=== PATIENT | female | born 1995 | race Caucasian/White ===

== ENCOUNTER 2022-04-24 12:30 | Outpatient (CLI) | payer OTHER ==
[~2022-04-24] VITALS: Ht 157.5 cm; Wt 75.0 kg
[2022-04-24 12:30] VITALS: BP 123/63
[~2022-04-24 12:30] MED LIST: ALBUTEROL SULFATE 2.5 MG/0.5 ML INH NEB SOLN INH PRN; EPINEPHrine INJ 1 MG/ML 1ML AMP IM PRN; IRON SUCROSE 300 MG in NS 250 ML OVER 90 MIN. IV ONE; NS 1,000 ML IV SCH; diphenhydrAMINE 50MG/ML VIAL (J1200) IV PRN; methylPREDNISolone 125MG 2ML VIAL IV PRN
[2022-04-24] MEDS ORDERED: [UNRECOGNIZED DRUG - OTHER] PO (12:52)
[2022-04-24] MEDS ORDERED: MULTTAB20 PO (12:52)
[2022-04-24] MEDS ORDERED: IMUR50TA10 PO (12:57)
[2022-04-24] MEDS ORDERED: PREG25CA PO (13:01)
[2022-04-24] MEDS ORDERED: ESCITALOPRAM PO (13:01)
[2022-04-24 13:30] VITALS: BP 113/55
[2022-04-24 15:25] VITALS: BP 115/59
== END 2022-04-24 15:25 | disposition home or self-care (01) ==
LOC: M INFU 12:30
PROVIDERS: ATTEND Registered Nurse
DX: O99.013 Anemia complicating pregnancy, third trimester (principal); Z3A.00 Weeks of gestation of pregnancy not specified; Z88.2 Allergy status to sulfonamides
CPT/HCPCS: 96365; 96366; J1756

== ENCOUNTER 2022-05-01 11:35 | Outpatient (CLI) | payer OTHER ==
[~2022-05-01] VITALS: Ht 157.5 cm; Wt 77.2 kg
[2022-05-01 11:35] VITALS: BP 118/66
[~2022-05-01 11:35] MED LIST changes: +ESCITALOPRAM PO; +IMUR50TA10 PO; -IRON SUCROSE 300 MG in NS 250 ML OVER 90 MIN. IV ONE; +MULTTAB20 PO; -NS 1,000 ML IV SCH; +PREG25CA PO; +[UNRECOGNIZED DRUG - OTHER] PO
[2022-05-01] MEDS ORDERED: IRON SUCROSE 300 MG in NS 250 ML OVER 90 MIN. IV ONE (12:00)
[2022-05-01] MEDS ORDERED: NS 1,000 ML IV SCH (12:00)
[2022-05-01 12:15] VITALS: BP 114/56
[2022-05-01 13:40] VITALS: BP 118/56
== END 2022-05-01 13:40 | disposition home or self-care (01) ==
LOC: M INFU 11:35
PROVIDERS: ATTEND Registered Nurse
DX: O99.013 Anemia complicating pregnancy, third trimester (principal); Z3A.00 Weeks of gestation of pregnancy not specified
CPT/HCPCS: 96365; 96366; J1756

== ENCOUNTER 2022-05-08 11:25 | Outpatient (CLI) | payer OTHER ==
[~2022-05-08] VITALS: Ht 157.5 cm; Wt 75.0 kg
[2022-05-08 11:25] VITALS: BP 123/56
[2022-05-08] MEDS ORDERED: IRON SUCROSE 300 MG in NS 250 ML OVER 90 MIN. IV ONE (11:30)
[2022-05-08] MEDS ORDERED: NS 1,000 ML IV SCH (11:30)
[2022-05-08 13:25] VITALS: BP 105/52
== END 2022-05-08 13:25 | disposition home or self-care (01) ==
LOC: M INFU 11:25 → EDUNIT# 11:30 → M INFU 13:25
PROVIDERS: ATTEND Registered Nurse
DX: O99.013 Anemia complicating pregnancy, third trimester (principal); Z3A.00 Weeks of gestation of pregnancy not specified; Z88.2 Allergy status to sulfonamides
CPT/HCPCS: 96365; 96366; J1756

== ENCOUNTER 2022-05-17 19:16 | Outpatient (CLI) | payer OTHER ==
[~2022-05-17] VITALS: Ht 157.5 cm; Wt 79.5 kg
[~2022-05-17 19:16] MED LIST changes: -ALBUTEROL SULFATE 2.5 MG/0.5 ML INH NEB SOLN INH PRN; -EPINEPHrine INJ 1 MG/ML 1ML AMP IM PRN; -diphenhydrAMINE 50MG/ML VIAL (J1200) IV PRN; -methylPREDNISolone 125MG 2ML VIAL IV PRN
[2022-05-17 19:37] VITALS: BP 124/69
== END 2022-05-17 20:16 | disposition home or self-care (01) ==
LOC: M LDO 19:16
PROVIDERS: ATTEND Obstetrics & Gynecology
DX: O36.8130 Decreased fetal movements, third trimester, not applicable or unspecified (principal); Z3A.33 33 weeks gestation of pregnancy; O99.713 Diseases of the skin and subcutaneous tissue complicating pregnancy, third trimester; L29.9 Pruritus, unspecified; Z88.2 Allergy status to sulfonamides
CPT/HCPCS: 59025; G0463

== ENCOUNTER 2022-06-11 11:35 | Outpatient (CLI) | payer OTHER ==
[~2022-06-11] VITALS: Ht 165.1 cm; Wt 80.0 kg
[~2022-06-11 11:35] MED LIST changes: +ALBUTEROL SULFATE 2.5 MG/0.5 ML INH NEB SOLN INH PRN; +EPINEPHrine INJ 1 MG/ML 1ML AMP IM PRN; +IRON SUCROSE 200 MG in NS 100 ML OVER 1 HR IV ONE; +NS 1,000 ML IV SCH; +diphenhydrAMINE 50MG/ML VIAL (J1200) IV PRN; +methylPREDNISolone 125MG 2ML VIAL IV PRN
[2022-06-11 12:00] VITALS: BP 134/61
[2022-06-11 13:27] VITALS: BP 114/58
== END 2022-06-11 13:30 | disposition home or self-care (01) ==
LOC: M INFU 11:35
PROVIDERS: ATTEND Internal Medicine Hematology
DX: D50.9 Iron deficiency anemia, unspecified (principal); Z88.2 Allergy status to sulfonamides
CPT/HCPCS: 96365; J1756

== ENCOUNTER 2022-06-18 11:22 | Outpatient (CLI) | payer OTHER ==
[~2022-06-18] VITALS: Ht 152.4 cm; Wt 80.0 kg
[~2022-06-18 11:22] MED LIST changes: -ALBUTEROL SULFATE 2.5 MG/0.5 ML INH NEB SOLN INH PRN; -EPINEPHrine INJ 1 MG/ML 1ML AMP IM PRN; -IRON SUCROSE 200 MG in NS 100 ML OVER 1 HR IV ONE; -NS 1,000 ML IV SCH; -diphenhydrAMINE 50MG/ML VIAL (J1200) IV PRN; -methylPREDNISolone 125MG 2ML VIAL IV PRN
[2022-06-18] MEDS ORDERED: EPINEPHrine INJ 1 MG/ML 1ML AMP IM PRN (11:30)
[2022-06-18] MEDS ORDERED: NS 1,000 ML IV SCH (11:30)
[2022-06-18] MEDS ORDERED: methylPREDNISolone 125MG 2ML VIAL IV PRN (11:30)
[2022-06-18] MEDS ORDERED: diphenhydrAMINE 50MG/ML VIAL (J1200) IV PRN (11:30)
[2022-06-18] MEDS ORDERED: ALBUTEROL SULFATE 2.5 MG/0.5 ML INH NEB SOLN INH PRN (11:30)
[2022-06-18] MEDS ORDERED: IRON SUCROSE 200 MG in NS 100 ML OVER 1 HR IV ONE (11:30)
[2022-06-18 11:36] VITALS: BP 119/57
[2022-06-18 13:00] VITALS: BP 115/53
== END 2022-06-18 13:00 | disposition home or self-care (01) ==
LOC: M INFU 11:22
PROVIDERS: ATTEND Internal Medicine Hematology
DX: D50.9 Iron deficiency anemia, unspecified (principal); Z88.2 Allergy status to sulfonamides
CPT/HCPCS: 96365; J1756

== ENCOUNTER 2022-06-22 12:34 | Outpatient (CLI) | payer OTHER ==
[~2022-06-22] VITALS: Ht 154.9 cm; Wt 81.1 kg
[2022-06-22 13:02] VITALS: BP 104/63
[2022-06-22] MEDS ORDERED: CLAR5TAB11 PO (13:10)
[2022-06-22] MEDS ORDERED: HOME MED LIST COMPLETE! XX SCH (13:10)
== END 2022-06-22 13:55 | disposition home or self-care (01) ==
LOC: M LDO 12:34
PROVIDERS: ATTEND Obstetrics & Gynecology
DX: O36.8130 Decreased fetal movements, third trimester, not applicable or unspecified (principal); Z3A.38 38 weeks gestation of pregnancy; Z88.2 Allergy status to sulfonamides
CPT/HCPCS: 59025; 76815; G0463

== ENCOUNTER 2022-06-26 22:06 | Outpatient (CLI) | payer OTHER ==
[~2022-06-26] VITALS: Ht 157.5 cm; Wt 82.3 kg
[~2022-06-26 22:06] MED LIST changes: +CLAR5TAB11 PO
[2022-06-26 22:21] VITALS: BP 114/69
[2022-06-26] MEDS ORDERED: HOME MED LIST COMPLETE! XX SCH (22:25)
== END 2022-06-26 22:55 | disposition home or self-care (01) ==
LOC: M LDO 22:06
PROVIDERS: ATTEND Obstetrics & Gynecology
DX: O47.1 False labor at or after 37 completed weeks of gestation (principal); Z3A.38 38 weeks gestation of pregnancy; Z88.2 Allergy status to sulfonamides
CPT/HCPCS: 59025; 76815; G0463

== ENCOUNTER 2022-06-30 17:27 | Inpatient (IN) | payer OTHER ==
[~2022-06-30] VITALS: Ht 157.5 cm; Wt 82.6 kg
[2022-06-30] VITALS (16 sets, daily range): BP systolic 94–125; BP diastolic 50–70
[2022-06-30] MEDS ORDERED: PANT20TA6 PO (18:04)
[2022-06-30] MEDS ORDERED: LEXA1TAB2 PO (18:04)
[2022-06-30] MEDS ORDERED: LACTATED RINGER'S 1000 ML IV STA (20:41)
[2022-06-30] MEDS ORDERED: OXYTOCIN DRIP 30 UNITS in IV 1 EA IV PRN ×6 (20:45)
[2022-06-30] MEDS ORDERED: LR 1,000 ML IV SCH (20:45)
[2022-06-30] MEDS ORDERED: CARBOPROST TROMETHAMINE 250 MCG/ML AMP IM PRN (20:45)
[2022-06-30] MEDS ORDERED: METHYLERGONOVINE MALEATE 0.2 MG/ML VIAL (J2210) IM PRN (20:45)
[2022-06-30] MEDS ORDERED: OXYTOCIN INJ 10 UNITS/ML VIAL (J2590) IV PRN (20:45)
[2022-06-30] MEDS ORDERED: LIDOCAINE 1% MDV 20ML VIAL INFIL PRN (20:45)
[2022-06-30] MEDS ORDERED: OXYTOCIN INJ 10 UNITS/ML VIAL (J2590) IM PRN (20:45)
[2022-06-30] MEDS ORDERED: TRANEXAMIC ACID INJection 1,000 MG in NS 100 ML IV PRN (20:45)
[2022-06-30] MEDS ORDERED: OXYTOCIN DRIP 30 UNITS in IV 1 EA IV SCH (20:45)
[2022-06-30 21:29] LABS: HEMATOCRIT 31.4 % (36.0-47.0); HEMOGLOBIN 10.5 g/dl (12.0-15.5); MEAN CORPUSCULAR HEMOGLOBIN 30.6 pg (27.0-33.0); MEAN CORPUSCULAR HGB CONC 33.4 g/dl (32.0-36.5); MEAN CORPUSCULAR VOLUME 91.5 fl (80.0-96.0); PLATELET COUNT, AUTOMATED 200 10^3/uL (150-450); RED BLOOD COUNT 3.43 10^6/uL (4.00-5.40); WHITE BLOOD COUNT 7.5 10^3/uL (4.0-10.0)
[2022-06-30] MEDS ORDERED: PROMETHAZINE 25MG/ML 1ML VIAL IV ONE (21:40)
[2022-06-30] MEDS ORDERED: BUTORPHANOL 2 MG/ML INJ (J0595) IV ONE (21:40)
[2022-06-30] MEDS ORDERED: diphenhydrAMINE 50MG/ML VIAL IV PRN (21:55)
[2022-06-30] MEDS ORDERED: ONDANSETRON 4MG 2ML VIAL IV PRN (21:55)
[2022-06-30] MEDS ORDERED: EPIDURAL/PCA KEYS XX PRN (21:55)
[2022-06-30] MEDS ORDERED: LR 500 ML IV PRN (21:55)
[2022-06-30] MEDS ORDERED: NALOXONE INJ 0.4MG/1ML VIAL (J2310 PER 1MG) IV PRN (21:55)
[2022-06-30] MEDS: FENTANYL/ROPIVACAINE/NACL BAG 100 ML EPIDURAL SCH (22:57)
[2022-06-30] MEDS: LR 1,000 ML IV SCH (22:58)
[2022-07-01] VITALS (35 sets, daily range): BP systolic 83–126; BP diastolic 46–77
[2022-07-01] MEDS: ePHEDrine SULFATE 25 MG/5 ML(5MG/ML) SYRINGE IVP PRN ×3 (01:14→07:32)
[2022-07-01] MEDS ORDERED: OXYTOCIN 30 UNITS IN 0.9% NaCl 500ML IV BAG (J2590) As Ordered ONE ×2 (04:14→13:49)
[2022-07-01] MEDS: LR 1,000 ML IV SCH ×3 (07:08→23:43)
[2022-07-01] MEDS: FENTANYL/ROPIVACAINE/NACL BAG 100 ML EPIDURAL SCH (07:16)
[2022-07-01] MEDS: PANTOPRAZOLE 40MG TAB (PROTONIX) PO SCH (09:23)
[2022-07-01] MEDS: ESCITALOPRAM OXALATE 10 MG TAB (LEXAPRO) PO SCH (09:23)
[2022-07-01] MEDS: PREGABALIN 75 MG CAP(LYRICA) PO SCH (10:09)
[2022-07-01] MEDS ORDERED: ceFAZolin SOD 2 GM in IV 1 EA IV ONE (11:55)
[2022-07-01] MEDS ORDERED: AZITHROMYCIN INJ 500 MG, VIAL MATE ADAPTER 1 EACH in NS 250 ML IV ONE (11:55)
[2022-07-01] MEDS ORDERED: BICITRA 30ML SOLN UDC PO ONE (11:55)
[2022-07-01] MEDS ORDERED: MORPHINE PRES-FREE INJ 10 MG/10 ML VIAL As Ordered ONE (12:12)
[2022-07-01] MEDS ORDERED: LIDOCAINE 2% W/EPINEPHRINE 20ML VIAL **PRES FREE As Ordered ONE (12:13)
[2022-07-01] MEDS ORDERED: BUPIVACAINE HCL 0.25% 10ML VIAL SC ONE (12:35)
[2022-07-01] MEDS ORDERED: MIDAZOLAM INJ 2MG/2ML VIAL (J2250 PER 1MG) As Ordered ONE (12:52)
[2022-07-01] MEDS ORDERED: KETAMINE HCL 200 MG/20 ML VIAL As Ordered ONE (12:52)
[2022-07-01] MEDS ORDERED: ONDANSETRON 4MG 2ML VIAL As Ordered ONE (12:57)
[2022-07-01] MEDS ORDERED: dexameTHASONE 4 MG/ML 1ML VIAL (J1100 PER 1MG) As Ordered ONE (12:57)
[2022-07-01] MEDS ORDERED: KETOROLAC 30 MG/ML 1ML VIAL IV SCH ×2 (13:00→19:00)
[2022-07-01 13:16] LABS: CORD GAS HCO3 A 25.5 MEQ/L; CORD GAS O2 SAT A 22.1 %; CORD GAS PCO2 A 66.2 mmHg; CORD GAS PH A 7.203 UNITS; CORD GAS SBC A 19.4 MEQ/L; CORD GAS TCO2 A 27.5 MEQ/L
[2022-07-01 13:18] LABS: CORD GAS ABE V -3.9; CORD GAS O2 SAT V 57.2 %; CORD GAS PCO2 V 48.4 mmHg; CORD GAS PH V 7.294 UNITS; CORD GAS PO2 V 23.6 mmHg; CORD GAS SBC V 20.3 MEQ/L; CORD GAS TCO2 V 24.4 MEQ/L
[2022-07-01] MEDS ORDERED: KETOROLAC 60MG 2ML VIAL As Ordered ONE (13:19)
[2022-07-01] MEDS ORDERED: ONDANSETRON 4MG 2ML VIAL IV PRN ×3 (13:40→14:40)
[2022-07-01] MEDS ORDERED: METHYLERGONOVINE MALEATE 0.2 MG TAB PO PRN (13:40)
[2022-07-01] MEDS ORDERED: MORPHINE 2 MG/ML 1ML VIAL IV PRN ×3 (13:40)
[2022-07-01] MEDS ORDERED: OXYTOCIN DRIP 30 UNITS in IV 1 EA IV SCH (13:40)
[2022-07-01] MEDS ORDERED: oxyCODONE 5MG TAB PO PRN ×2 (13:40→14:40)
[2022-07-01] MEDS ORDERED: RHOGAM 300 MCG (1500 IU) INJ (J2790) IM SCH (13:40)
[2022-07-01] MEDS ORDERED: SIMETHICONE 80MG CHEW TAB PO PRN (13:40)
[2022-07-01] MEDS ORDERED: ACETAMINOPHEN 650 MG SUPP PR PRN (13:40)
[2022-07-01] MEDS ORDERED: METOCLOPRAMIDE INJ 10MG/2ML VIAL (J2765 PER 1) IV PRN (14:40)
[2022-07-01] MEDS ORDERED: diphenhydrAMINE 50MG/ML VIAL IV PRN (14:40)
[2022-07-01] MEDS ORDERED: fentaNYL 100 MCG/2 ML INJECTION IV PRN (14:40)
[2022-07-01] MEDS ORDERED: **NOTE PATIENT COMMENT** MISC XX SCH (14:40)
[2022-07-01] MEDS ORDERED: LR 1,000 ML IV SCH (14:40)
[2022-07-01] MEDS: SLF 3 ML SYR IV SCH ×2 (14:40→22:40)
[2022-07-01] MEDS ORDERED: NALOXONE INJ 0.4MG/1ML VIAL (J2310 PER 1MG) IV PRN ×2 (14:40)
[2022-07-01] MEDS: KETOROLAC 30 MG/ML 1ML VIAL IV SCH (19:36)
[2022-07-01] MEDS: DOCUSATE SODIUM 100MG CAPSULE PO SCH (21:46)
[2022-07-02] MEDS: KETOROLAC 30 MG/ML 1ML VIAL IV SCH ×2 (01:40→07:24)
[2022-07-02 02:00] VITALS: BP 90/51
[2022-07-02 05:25] VITALS: BP 99/52
[2022-07-02] MEDS: SLF 3 ML SYR IV SCH (06:40)
[2022-07-02] MEDS ORDERED: BISACODYL 10 MG SUPP PR PRN (07:05)
[2022-07-02] MEDS: ESCITALOPRAM OXALATE 10 MG TAB (LEXAPRO) PO SCH (08:49)
[2022-07-02] MEDS: DOCUSATE SODIUM 100MG CAPSULE PO SCH ×2 (08:49→22:08)
[2022-07-02] MEDS: PANTOPRAZOLE 40MG TAB (PROTONIX) PO SCH (08:50)
[2022-07-02] MEDS: PRENATAL VITAMINS CHEWABLE TABLET PO SCH (08:51)
[2022-07-02] MEDS: SIMETHICONE 80MG CHEW TAB PO SCH ×4 (08:51→22:09)
[2022-07-02] MEDS: ENOXAPARIN 40MG/0.4ML SYRINGE (J1650 PER 10MG) SC SCH (08:51)
[2022-07-02] MEDS: MIRALAX *UNIT DOSE* 17GM PACKET PO SCH (08:51)
[2022-07-02 08:54] LABS: HEMATOCRIT 23.6 % (36.0-47.0); MEAN CORPUSCULAR HEMOGLOBIN 30.6 pg (27.0-33.0); MEAN CORPUSCULAR HGB CONC 32.6 g/dl (32.0-36.5); MEAN CORPUSCULAR VOLUME 93.7 fl (80.0-96.0); PLATELET COUNT, AUTOMATED 141 10^3/uL (150-450); RED BLOOD COUNT 2.52 10^6/uL (4.00-5.40)
[2022-07-02 08:58] LABS: HEMOGLOBIN 7.7 g/dl (12.0-15.5)
[2022-07-02] MEDS: PREGABALIN 75 MG CAP(LYRICA) PO SCH (09:30)
[2022-07-02 10:00] VITALS: BP 88/53
[2022-07-02] MEDS: LR 1,000 ML IV SCH (10:06)
[2022-07-02 14:00] VITALS: BP 105/56
[2022-07-02] MEDS: IBUPROFEN 800 MG TAB PO SCH ×2 (15:09→22:30)
[2022-07-02 18:00] VITALS: BP 92/55
[2022-07-02] MEDS: PERCOCET 5MG/325MG TAB PO PRN (19:50)
[2022-07-02 21:45] VITALS: BP 110/56
[2022-07-03 02:11] VITALS: BP 113/60
[2022-07-03] MEDS: PERCOCET 5MG/325MG TAB PO PRN ×2 (03:14→09:56)
[2022-07-03 06:00] VITALS: BP 110/61
[2022-07-03] MEDS: IBUPROFEN 800 MG TAB PO SCH ×2 (07:16→15:00)
[2022-07-03] MEDS: PRENATAL VITAMINS CHEWABLE TABLET PO SCH (08:04)
[2022-07-03] MEDS: SIMETHICONE 80MG CHEW TAB PO SCH ×2 (08:04→13:34)
[2022-07-03] MEDS: ENOXAPARIN 40MG/0.4ML SYRINGE (J1650 PER 10MG) SC SCH (08:05)
[2022-07-03] MEDS: PANTOPRAZOLE 40MG TAB (PROTONIX) PO SCH (08:05)
[2022-07-03] MEDS: DOCUSATE SODIUM 100MG CAPSULE PO SCH (08:05)
[2022-07-03] MEDS: PREGABALIN 75 MG CAP(LYRICA) PO SCH (08:05)
[2022-07-03] MEDS: MIRALAX *UNIT DOSE* 17GM PACKET PO SCH (08:06)
[2022-07-03] MEDS: ESCITALOPRAM OXALATE 10 MG TAB (LEXAPRO) PO SCH (08:10)
[2022-07-03] MEDS ORDERED: MEASLES,MUMPS,RUBELLA VACCINE INJ (MMR-II) (90707) SC.IMMUN ONE (09:00)
[2022-07-03] MEDS ORDERED: PERCOCET PO (14:20)
[2022-07-03] MEDS ORDERED: IBUP80TA PO (14:20)
== END 2022-07-03 15:54 | disposition home or self-care (01) | DRG 772 ==
LOC: M LDO 17:27 → INTOOBSV 20:59 → M LDI 20:59 → M OBS 07-01 15:18 → OBSVTOIN 07-01 15:45
PROVIDERS: ADMIT Obstetrics & Gynecology; ATTEND Obstetrics & Gynecology
PROC: 10D00Z1 Extraction of Products of Conception, Low, Open Approach (ICD-10-PCS; principal; 2022-07-01 12:15)
DX: O42.02 Full-term premature rupture of membranes, onset of labor within 24 hours of rupture (principal); K50.90 Crohn's disease, unspecified, without complications; Z37.0 Single live birth; Z3A.39 39 weeks gestation of pregnancy; Z88.2 Allergy status to sulfonamides; Z88.8 Allergy status to other drugs, medicaments and biological substances; O26.00 Excessive weight gain in pregnancy, unspecified trimester; O99.62 Diseases of the digestive system complicating childbirth; O62.0 Primary inadequate contractions; O76 Abnormality in fetal heart rate and rhythm complicating labor and delivery

== ENCOUNTER 2022-09-01 16:20 | Emergency (ER) | payer OTHER ==
[~2022-09-01] VITALS: Ht 157.5 cm; Wt 73.1 kg
[~2022-09-01 16:20] MED LIST changes: +IBUP80TA PO; +LEXA1TAB2 PO; +PANT20TA6 PO; +PERCOCET PO
[2022-09-01] MEDS ORDERED: ETON68IM SC (16:50)
[2022-09-01] MEDS ORDERED: LIDOCAINE 2% 5ML JELLY UROJET TOP ONE (17:00)
[2022-09-01 18:04] LABS: BLOOD UREA NITROGEN 14 MG/DL (9-23); CALCIUM LEVEL 9.4 MG/DL (8.5-10.1); CARBON DIOXIDE LEVEL 24 MMOL/L (20-31); CHLORIDE LEVEL 104 MMOL/L (98-107); CREATININE FOR GFR 0.74 MG/DL (0.55-1.30); GLOMERULAR FILTRATION RATE > 60.0 (>60); GLUCOSE, FASTING 101 MG/DL (60-100); POTASSIUM SERUM 4.3 MMOL/L (3.5-5.1); SODIUM LEVEL 139 MMOL/L (136-145)
[2022-09-01 18:05] LABS: HCG, SERUM QUALITATIVE NEGATIVE (NEGATIVE)
[2022-09-01 19:13] VITALS: BP 120/59
== END 2022-09-01 19:19 | disposition home or self-care (01) ==
LOC: M ED 16:20
DX: R33.9 Retention of urine, unspecified (principal); F32.A Depression, unspecified; F41.9 Anxiety disorder, unspecified; K50.90 Crohn's disease, unspecified, without complications; D64.9 Anemia, unspecified; Z88.2 Allergy status to sulfonamides; Z88.8 Allergy status to other drugs, medicaments and biological substances; Z79.891 Long term (current) use of opiate analgesic; Z79.624 Long term (current) use of inhibitors of nucleotide synthesis; Z79.899 Other long term (current) drug therapy

== ENCOUNTER → 2022-10-01 | Outpatient (REF) | payer OTHER ==
[~2022-10-01] MED LIST changes: +ETON68IM SC
[2022-10-01 19:29] LABS: APPEARANCE, URINE MANUAL CLEAR (CLEAR); COLOR, URINE MANUAL LT YELLOW (YELLOW); GLUCOSE, URINE (UA) MANUAL NEGATIVE (NEGATIVE); KETONE, URINE MANUAL NEGATIVE (NEGATIVE); PROTEIN, URINE MANUAL NEGATIVE (NEGATIVE); SPECIFIC GRAVITY,URINE MANUAL 1.005 (1.002-1.035); UROBILINOGEN, URINE MANUAL NORMAL (NORMAL)
[2022-10-01 19:30] LABS: BILIRUBIN, URINE MANUAL NEGATIVE (NEGATIVE); BLOOD URINE MANUAL NEGATIVE (NEGATIVE); LEUKOCYTE ESTERASE, URINE MAN NEGATIVE (NEGATIVE); NITRITE, URINE MANUAL NEGATIVE (NEGATIVE)
== END ==
LOC: M SMT 17:02
PROVIDERS: ATTEND Nurse Practitioner Women's Health
DX: R30.0 Dysuria (principal)

== ENCOUNTER → 2022-11-07 | Outpatient (CLI) | payer OTHER | LOC: M PLAIMG 10:14 | PROVIDERS: ATTEND Allergy & Immunology Allergy | DX: J32.9 Chronic sinusitis, unspecified (principal) ==